=== PATIENT | female | born 1995 | race Caucasian/White ===

== ENCOUNTER 2017-12-18 14:14 | Emergency (ER) | payer MEDICAID ==
[2017-12-18] MEDS ORDERED: Sodium Chloride 0.9% 1,000 ML IV ONE (15:26)
[2017-12-18] MEDS ORDERED: Ondansetron 4 MG/2 ML SDV IV ONE (15:26)
[2017-12-18 15:49] LABS: ANION GAP 9.6; CHLORIDE,CL 103 mmol/L (101-111); SODIUM,NA 135 mmol/L (135-145)
[2017-12-18] MEDS ORDERED: Ketorolac 30 MG/ML SDV IVPUSH ONE (16:00)
--- NOTE | 2017-12-18 16:23 | EDM.PDOC ---
Scribed by Briana Morrissey 12/18/17 2480 for Wayne Cabello PA ED HPI GENERAL MEDICAL PROBLEM - General Chief Complaint: Abdominal Pain Stated Complaint: [place] SYMPTOMS Time Seen by Provider: 12/18/17 15:20 Source of Information: Reports: Patient, RN, RN Notes Reviewed History Limitations: Reports: No Limitations - History of Present Illness INITIAL COMMENTS - FREE TEXT/NARRATIVE: Patient states that she is not feeling well. She has had nausea, vomiting and diarrhea for 3 days. She has not been eating. She has intermittent dizziness. She has a small area on her left posterior thigh . Onset: Gradual Duration: Getting Worse Location: Reports: Generalized Quality: Reports: Ache Severity: Mild Improves with: Reports: None Worsens with: Reports: None Associated Symptoms: Reports: No Other Symptoms Abdomen Pain Score (Numeric/FACES): 7 - Related Data Allergies Allergy/AdvReac Type Severity Reaction Status Date / Time metoclopramide [From Reglan] Allergy Anxiety Verified 12/18/17 15:18 Home Meds: Home Meds FLUoxetine [PROzac] 10 mg PO BEDTIME 12/18/17 [History] Past Medical History - Past Health History Medical/Surgical History: Denies Medical/Surgical History Cardiovascular History: Reports: Other (See Below) (Von Willebrand) Social & Family History - Tobacco Use Smoking Status *Q: Never Smoker - Caffeine Use Caffeine Use: Reports: Coffee, Soda, Tea - Recreational Drug Use Recreational Drug Use: No ED ROS GENERAL - Review of Systems Review Of Systems: ROS reveals no pertinent complaints other than HPI. ED EXAM, GI/ABD - Physical Exam Exam: See Below Exam Limited By: No Limitations General Appearance: Alert, WD/WN, No Apparent Distress Eyes: Bilateral: Normal Appearance Ears: Normal External Exam, Normal Canal, Hearing Grossly Normal, Normal TMs Nose: Normal Inspection, Normal Mucosa, No Blood Throat/Mouth: Normal Inspection, Normal Lips, Normal Teeth, Normal Gums, Normal Oropharynx, Normal Voice, No Airway Compromise Head: Atraumatic, Normocephalic Neck: Normal Inspection, Supple, Non-Tender, Full Range of Motion Respiratory/Chest: No Respiratory Distress, Lungs Clear, Normal Breath Sounds, No Accessory Muscle Use, Chest Non-Tender Cardiovascular: Normal Peripheral Pulses, Regular Rate, Rhythm, No Edema, No Gallop, No JVD, No Murmur, No Rub GI/Abdominal Exam: Normal Bowel Sounds, Soft, Non-Tender, No Organomegaly, No Distention, No Abnormal Bruit, No Mass, Pelvis Stable (Female) Exam: Deferred Rectal (Female) Exam: Deferred Back Exam: Normal Inspection, Full Range of Motion, NT Extremities: Normal Inspection, Normal Range of Motion, Non-Tender, Normal Capillary Refill, No Pedal Edema Neurological: Alert, Oriented, CN II-XII Intact, Normal Cognition, Normal Gait, Normal Reflexes, No Motor/Sensory Deficits Psychiatric: Normal Affect, Normal Mood Skin Exam: Warm, Dry, Intact, Normal Color, No Rash Lymphatic: No Adenopathy Course - Vital Signs Last Recorded V/S: Last Vital Signs Temp 37.7 C 12/18/17 15:12 Pulse 75 12/18/17 15:12 Resp 16 12/18/17 15:12 BP 118/99 H 12/18/17 15:12 Pulse Ox 97 12/18/17 15:12 - Orders/Labs/Meds Orders: Active Orders 24 hr Category Date Time Status LYME, TOTAL AB TEST/REFLEX [REF] Stat Lab 12/18/17 15:24 Received [place] VIRUS IGM [REF] Stat Lab 12/18/17 15:16 Ordered Sodium Chloride 0.9% [Normal Saline] 1,000 ml Med 12/18/17 15:26 Active IV .BOLUS Medication Orders Sodium Chloride (Normal Saline) 1,000 mls @ 999 mls/hr IV .BOLUS ONE Stop: 12/18/17 16:26 Last Admin: 12/18/17 15:35 Dose: 999 mls/hr Labs: Laboratory Tests 12/18/17 12/18/17 Range/Units 15:24 15:24 WBC 5.6 (5.0-10.0) 10^3/uL RBC 4.98 (4.2-5.4) 10^6/uL Hgb 12.5 (12.0-16.0) g/dL Hct 38.3 (37.0-47.0) % MCV 76.9 L (80-100) fL MCH 25.1 L (27.0-34.0) pg MCHC 32.6 L (33.0-35.0) g/dL Plt Count 271 (150-450) 10^3/uL Neut % (Auto) 50.2 (42.2-75.2) % Lymph % (Auto) 40.4 (20.5-50.1) % [place] % (Auto) 7.3 (2-8) % Eos % (Auto) 1.4 (1.0-3.0) % Baso % (Auto) 0.7 (0.0-1.0) % Sodium 135 (135-145) mmol/L Potassium 3.6 (3.6-5.0) mmol/L Chloride 103 (101-111) mmol/L Carbon Dioxide 26.0 (21.0-31.0) mmol/L Anion Gap 9.6 BUN 10 (7-18) mg/dL Creatinine 0.9 (0.6-1.3) mg/dL Est Cr Clr Drug Dosing 86.73 mL/min Estimated GFR (MDRD) > 60 BUN/Creatinine Ratio 11.11 Glucose 86 (74-105) mg/dL Calcium 9.1 (8.4-10.2) mg/dl Total Bilirubin 0.4 (0.2-1.0) mg/dL AST 18 (10-42) IU/L ALT 13 (10-60) IU/L Alkaline Phosphatase 53 (42-121) IU/L Total Protein 7.3 (6.7-8.2) g/dl Albumin 4.4 (3.2-5.5) g/dl Globulin 2.9 Albumin/Globulin Ratio 1.52 Meds: Medications Generic Name Dose Route Start Last Admin Trade Name Freq PRN Reason Stop Dose Admin Sodium Chloride 1,000 mls @ 999 mls/hr 12/18/17 15:26 12/18/17 15:35 Normal Saline IV 12/18/17 16:26 999 mls/hr .BOLUS ONE Administration Discontinued Medications Generic Name Dose Route Start Last Admin Trade Name Freq PRN Reason Stop Dose Admin Ketorolac Tromethamine 30 mg 12/18/17 16:00 12/18/17 16:09 Toradol IVPUSH 12/18/17 16:01 30 mg ONETIME ONE Administration Ondansetron HCl 4 mg 12/18/17 15:26 12/18/17 15:37 Zofran IV 12/18/17 15:27 4 mg ONETIME ONE Administration Departure - Departure Time of Disposition: 16:23 Disposition: Home, Self-Care 01 Condition: Fair Clinical Impression: Gastroenteritis, Dehydration Abdominal pain Qualifiers: Abdominal location: generalized Qualified Code(s): R10.84 - Generalized abdominal pain - Discharge Information *PRESCRIPTION DRUG MONITORING PROGRAM REVIEWED*: Not Applicable *COPY OF PRESCRIPTION DRUG MONITORING REPORT IN PATIENT SOPHY: Not Applicable Instructions: Viral Gastroenteritis, Adult, [id number], Nausea and Vomiting, Adult, [id number] Forms: ED Department Discharge Care Plan Goals: The patient was advised of the examination and lab results during the visit. The patient was given IV Zofran, IV Toradol and IV fluids during the visit. The patient was discharged with a script for Zofran ODT (4 mg) #16 to take 1 by mouth every 6 hours as needed. The patient was encouraged to stick to a BRAT diet (bananas, rice, applesauce and toast) over the next 48 hours with small frequent sips of fluid. There were several lab tests that were sent out to for further analysis. The patient will be contacted if these tests come back positive. If the patient has any additional symptoms or concerns, the patient should follow-up with her primary care facility or return to the emergency department. - My Orders Last 24 Hours: My Active Orders 12/18/17 15:16 [place] VIRUS IGM [REF] Stat 12/18/17 15:24 LYME, TOTAL AB TEST/REFLEX [REF] Stat 12/18/17 15:26 Sodium Chloride 0.9% [Normal Saline] 1,000 ml IV .BOLUS - Assessment/Plan Last 24 Hours: My Active Orders 12/18/17 15:16 [place] VIRUS IGM [REF] Stat 12/18/17 15:24 LYME, TOTAL AB TEST/REFLEX [REF] Stat 12/18/17 15:26 Sodium Chloride 0.9% [Normal Saline] 1,000 ml IV .BOLUS I have read and agree with the documentation that has been completed regarding this visit. By signing this record, I attest that the documentation was completed in my physical presence and is an accurate record of the encounter.
== END 2017-12-18 16:50 | disposition home or self-care (01) ==
LOC: DL.ED 14:14
DX: K52.9 Noninfective gastroenteritis and colitis, unspecified (principal); E86.0 Dehydration; Z88.8 Allergy status to other drugs, medicaments and biological substances
CPT/HCPCS: 36415; 80053; 85025; 86618; 86788; 96361; 96374; 96375; 99284; J1885; J2405; J7030

== ENCOUNTER 2018-02-07 18:51 | Emergency (ER) | payer MEDICAID ==
--- NOTE | 2018-02-07 19:26 | EDM.PDOC ---
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 The patient reports she started to notice spotting this morning at about 0400. Throughout the day, the patient has started to notice increased lower abdominal cramping and increased bleeding. The patient reports that she has a history of von Willebrand disease and is concerned about excessive bleeding due to her disease. Onset: Today Onset Date: 02/07/18 Onset Time: 04:00 Duration: Constant, Getting Worse Location: Reports: Abdomen Quality: Reports: Other Severity: Moderate Improves with: Reports: None Worsens with: Reports: None Associated Symptoms: Reports: No Other Symptoms Lower Abdominal Pain Score (Numeric/FACES): 7 Lower Back Pain Score (Numeric/FACES): 8 - Related Data Allergies Allergy/AdvReac Type Severity Reaction Status Date / Time metoclopramide [From Reglan] Allergy Anxiety Verified 02/07/18 19:10 Home Meds: Home Meds FLUoxetine [PROzac] 10 mg PO BEDTIME 12/18/17 [History] Past Medical History - Past Health History Medical/Surgical History: Denies Medical/Surgical History Cardiovascular History: Reports: Other (See Below) (Von Willebrand) Hematologic History: Reports: Other (See Below) Other Hematologic History: Von Willebrand Dx Social & Family History - Tobacco Use Smoking Status *Q: Never Smoker - Caffeine Use Caffeine Use: Reports: None - Recreational Drug Use Recreational Drug Use: No ED ROS GENERAL - Review of Systems Review Of Systems: ROS reveals no pertinent complaints other than HPI. ED EXAM - Physical Exam Exam: See Below Exam Limited By: No Limitations General Appearance: Alert, WD/WN, Mild Distress Eye Exam: Bilateral Eye: EOMI, Normal Inspection, PERRL Ears: Normal External Exam, Normal Canal, Hearing Grossly Normal, Normal TMs Nose: Normal Inspection, Normal Mucosa, No Blood Throat/Mouth: Normal Inspection, Normal Lips, Normal Teeth, Normal Gums, Normal Oropharynx, Normal Voice, No Airway Compromise Head: Atraumatic, Normocephalic Neck: Normal Inspection, Supple, Non-Tender, Full Range of Motion Respiratory/Chest: No Respiratory Distress, Lungs Clear, Normal Breath Sounds, No Accessory Muscle Use, Chest Non-Tender Cardiovascular: Normal Peripheral Pulses, Regular Rate, Rhythm, No Edema, No Gallop, No JVD, No Murmur, No Rub GI/Abdominal Exam: Tender (lower abdominal cramping and vaginal bleeding) Rectal Exam: Deferred Heart Tones: Not [place] Movement: Not Appreciated Back Exam: Normal Inspection, Full Range of Motion, NT Extremities: Normal Inspection, Normal Range of Motion, Non-Tender, Normal Capillary Refill, No Pedal Edema Neurological: Alert, Oriented, CN II-XII Intact, Normal Cognition, Normal Gait, Normal Reflexes, No Motor/Sensory Deficits Psychiatric: Normal Affect, Normal Mood Skin Exam: Warm, Dry, Intact, Normal Color, No Rash Lymphatic: No Adenopathy Course - Vital Signs Last Recorded V/S: Last Vital Signs Temp 36.5 C 02/07/18 19:02 Pulse 101 H 02/07/18 19:02 Resp 18 02/07/18 19:02 BP 122/71 02/07/18 19:02 Pulse Ox 100 02/07/18 19:02 - Orders/Labs/Meds Orders: Active Orders 24 hr Category Date Time Status OB Ltd 1 or More Fetus [US] Urgent Exams 02/07/18 19:55 Ordered OB Transvaginal [US] Urgent Exams 02/07/18 19:55 Ordered UA W/MICROSCOPIC [URIN] Stat Lab 02/07/18 18:58 Ordered Labs: Laboratory Tests 02/07/18 02/07/18 02/07/18 Range/Units 19:10 19:10 19:10 WBC 7.0 (5.0-10.0) 10^3/uL RBC 4.57 (4.2-5.4) 10^6/uL Hgb 11.8 L (12.0-16.0) g/dL Hct 35.8 L (37.0-47.0) % MCV 78.3 L (80-100) fL MCH 25.8 L (27.0-34.0) pg MCHC 33.0 (33.0-35.0) g/dL Plt Count 188 D (150-450) 10^3/uL Neut % (Auto) 66.0 (42.2-75.2) % Lymph % (Auto) 28.1 (20.5-50.1) % [place] % (Auto) 4.6 (2-8) % Eos % (Auto) 0.9 L (1.0-3.0) % Baso % (Auto) 0.4 (0.0-1.0) % PT (9.0-12.0) SEC INR (0.9-1.2) Sodium 136 (135-145) mmol/L Potassium 3.5 L (3.6-5.0) mmol/L Chloride 102 (101-111) mmol/L Carbon Dioxide 27.0 (21.0-31.0) mmol/L Anion Gap 10.5 BUN 10 (7-18) mg/dL Creatinine 0.5 L (0.6-1.3) mg/dL Est Cr Clr Drug Dosing 156.12 mL/min Estimated GFR (MDRD) > 60 BUN/Creatinine Ratio 20.00 Glucose 108 H (74-105) mg/dL Calcium 9.0 (8.4-10.2) mg/dl Total Bilirubin 0.5 (0.2-1.0) mg/dL AST 16 (10-42) IU/L ALT 10 (10-60) IU/L Alkaline Phosphatase 41 L (42-121) IU/L Total Protein 6.9 (6.7-8.2) g/dl Albumin 4.1 (3.2-5.5) g/dl Globulin 2.8 Albumin/Globulin Ratio 1.46 HCG, Quant > 1358 H (0-25) mIU/ml Beta HCG, Quant 49425 mIU/ml Urine Color (YELLOW) Urine Appearance (CLEAR) Urine pH (5.0-9.0) Ur Specific [place] (1.005-1.030) Urine Protein (NEGATIVE) Urine Glucose (UA) (NEGATIVE) Urine Ketones (NEGATIVE) Urine Occult Blood (NEGATIVE) Urine Nitrite (NEGATIVE) Urine Bilirubin (NEGATIVE) Urine Urobilinogen (0.2-1.0) mg/dL Ur Leukocyte Esterase (NEGATIVE) Urine RBC /HPF Urine WBC (0-5/HPF) /HPF Ur Epithelial Cells /HPF Urine Bacteria (0-FEW/HPF) /HPF Urine Mucus /LPF 02/07/18 02/07/18 Range/Units 19:10 19:43 WBC (5.0-10.0) 10^3/uL RBC (4.2-5.4) 10^6/uL Hgb (12.0-16.0) g/dL Hct (37.0-47.0) % MCV (80-100) fL MCH (27.0-34.0) pg MCHC (33.0-35.0) g/dL Plt Count (150-450) 10^3/uL Neut % (Auto) (42.2-75.2) % Lymph % (Auto) (20.5-50.1) % [place] % (Auto) (2-8) % Eos % (Auto) (1.0-3.0) % Baso % (Auto) (0.0-1.0) % PT 10.1 (9.0-12.0) SEC INR 1.0 (0.9-1.2) Sodium (135-145) mmol/L Potassium (3.6-5.0) mmol/L Chloride (101-111) mmol/L Carbon Dioxide (21.0-31.0) mmol/L Anion Gap BUN (7-18) mg/dL Creatinine (0.6-1.3) mg/dL Est Cr Clr Drug Dosing mL/min Estimated GFR (MDRD) BUN/Creatinine Ratio Glucose (74-105) mg/dL Calcium (8.4-10.2) mg/dl Total Bilirubin (0.2-1.0) mg/dL AST (10-42) IU/L ALT (10-60) IU/L Alkaline Phosphatase (42-121) IU/L Total Protein (6.7-8.2) g/dl Albumin (3.2-5.5) g/dl Globulin Albumin/Globulin Ratio HCG, Quant (0-25) mIU/ml Beta HCG, Quant mIU/ml Urine Color Yellow (YELLOW) Urine Appearance Cloudy (CLEAR) Urine pH 6.0 (5.0-9.0) Ur Specific [place] >= 1.030 (1.005-1.030) Urine Protein Trace H (NEGATIVE) Urine Glucose (UA) Negative (NEGATIVE) Urine Ketones Negative (NEGATIVE) Urine Occult Blood Moderate H (NEGATIVE) Urine Nitrite Negative (NEGATIVE) Urine Bilirubin Negative (NEGATIVE) Urine Urobilinogen 1.0 (0.2-1.0) mg/dL Ur Leukocyte Esterase Negative (NEGATIVE) Urine RBC 75-100 H /HPF Urine WBC 5-10 H (0-5/HPF) /HPF Ur Epithelial Cells Few /HPF Urine Bacteria Few (0-FEW/HPF) /HPF Urine Mucus Many H /LPF Departure - Departure Time of Disposition: 22:00 Disposition: Home, Self-Care 01 Condition: Fair Clinical Impression: Threatened miscarriage in early - Discharge Information *PRESCRIPTION DRUG MONITORING PROGRAM REVIEWED*: Not Applicable *COPY OF PRESCRIPTION DRUG MONITORING REPORT IN PATIENT SOPHY: Not Applicable Instructions: Vaginal Bleeding During , First Trimester, [id number] , Threatened Miscarriage Forms: ED Department Discharge Care Plan Goals: The patient was advised of the examination, lab and ultrasound results during the visit. The patient was advised of the consult with our big machine consultant logging supervisor (Dr. Hawk). The patient was encouraged to go home and rest and avoid excessive activity. The patient may take Tylenol or ibuprofen as needed for pain. The patient should contact her logging supervisor in the morning for continued evaluation and further management. If the patient has any additional symptoms or further concerns, the patient should visit her primary care facility or return to the emergency department. - My Orders Last 24 Hours: My Active Orders 02/07/18 18:58 UA W/MICROSCOPIC [URIN] Stat 02/07/18 19:55 OB Ltd 1 or More Fetus [US] Urgent OB Transvaginal [US] Urgent - Assessment/Plan Last 24 Hours: My Active Orders 02/07/18 18:58 UA W/MICROSCOPIC [URIN] Stat 02/07/18 19:55 OB Ltd 1 or More Fetus [US] Urgent OB Transvaginal [US] Urgent
[2018-02-07 19:44] LABS: ANION GAP 10.5; CHLORIDE,CL 102 mmol/L (101-111); SODIUM,NA 136 mmol/L (135-145)
== END 2018-02-07 22:13 | disposition home or self-care (01) ==
LOC: DL.ED 18:51
DX: O20.0 Threatened abortion (principal); Z88.8 Allergy status to other drugs, medicaments and biological substances; Z3A.01 Less than 8 weeks gestation of pregnancy
CPT/HCPCS: 36415; 76815; 76817; 80053; 81001; 84702; 85025; 85610; 99284

== ENCOUNTER 2018-02-08 09:55 | Emergency (ER) | payer MEDICAID ==
--- NOTE | 2018-02-08 10:05 | EDM.PDOC ---
ED HPI GENERAL MEDICAL PROBLEM - General Chief Complaint: WAREHOUSE SHIPPING ASSOCIATE Problem Stated Complaint: [id number] 8 WEEK PREG BLEEDING Time Seen by Provider: 02/08/18 10:05 Source of Information: Reports: Patient, Old Records, RN, RN Notes Reviewed History Limitations: Reports: No Limitations - History of Present Illness INITIAL COMMENTS - FREE TEXT/NARRATIVE: G4, P3, 0-0, L3 all by vag. delivery, currently at 8 weeks 1 day by US on presents to ER from home by POV with c/o heavy vaginal bleeding and Hx of von Willebrand disease. Pt was seen here last evening for vaginal bleeding. She return today due to increased pain and she passed a clot that was about the size of an egg. Pt reports soaking a large pad every hour for at least 3 hours. She admits to mild lightheadedness, and feels very anxious. Her youngest child is 4 months old, and she was not expecting to become at this time. Onset Date: 02/07/18 Duration: Constant Location: Reports: Pelvis Quality: Reports: Ache, Other (cramping) Severity: Moderate Improves with: Reports: None Worsens with: Reports: None Associated Symptoms: Reports: No Other Symptoms Lower Abdominal Pain Score (Numeric/FACES): 9 - Related Data Allergies Allergy/AdvReac Type Severity Reaction Status Date / Time metoclopramide [From Reglan] Allergy Anxiety Verified 02/08/18 10:01 Home Meds: Home Meds FLUoxetine [PROzac] 10 mg PO BEDTIME 12/18/17 [History] Past Medical History - Past Health History Medical/Surgical History: Denies Medical/Surgical History Cardiovascular History: Reports: Other (See Below) (Von Willebrand) WAREHOUSE SHIPPING ASSOCIATE History: Reports: : 4 Para: 3 (all by vag. delivery) LMP (Approximate): Hematologic History: Reports: Other (See Below) Other Hematologic History: Von Willebrand Dx Social & Family History - Family History Family Medical History: Noncontributory - Caffeine Use Caffeine Use: Reports: None - Alcohol Use Alcohol Use History: No - Recreational Drug Use Recreational Drug Use: No - Sexual History Sexual History: Reports: Sexually Active - Living Situation & Occupation Living situation: Reports: , with Family ED ROS GENERAL - Review of Systems Review Of Systems: ROS reveals no pertinent complaints other than HPI. ED EXAM - Physical Exam Exam: See Below Exam Limited By: No Limitations General Appearance: Alert, WD/WN, No Apparent Distress, Anxious Nose: Normal Inspection, No Blood Throat/Mouth: Normal Inspection, Normal Lips, Normal Teeth, Normal Gums, Normal Oropharynx, Normal Voice, No Airway Compromise Head: Atraumatic, Normocephalic Neck: Normal Inspection, Supple, Non-Tender, Full Range of Motion Respiratory/Chest: No Respiratory Distress, Lungs Clear, Normal Breath Sounds, No Accessory Muscle Use, Chest Non-Tender Cardiovascular: Regular Rate, Rhythm, No Edema, Tachycardia GI/Abdominal Exam: Normal Bowel Sounds, Soft, No Distention, Tender (mild suprapubic tenderness). No: Guarding, Rigid, Rebound Rectal Exam: Deferred (Female) Exam: Vaginal Bleeding (moderately heavy). No: Normal Speculum Exam (deferred) Back Exam: Normal Inspection Extremities: Normal Inspection Neurological: Alert, Oriented, CN II-XII Intact, Normal Cognition, Normal Gait, No Motor/Sensory Deficits Psychiatric: Normal Affect, Anxious Skin Exam: Warm, Dry, Intact, Normal Color, No Rash Course - Vital Signs Last Recorded V/S: Last Vital Signs Temp 36.4 C 02/08/18 10:02 Pulse 104 H 02/08/18 10:02 Resp 15 02/08/18 10:02 BP 120/75 02/08/18 10:02 Pulse Ox 100 02/08/18 10:02 - Orders/Labs/Meds Orders: Active Orders 24 hr Category Date Time Status OB Transvaginal [US] Stat Exams 02/08/18 10:19 Taken Labs: Laboratory Tests 02/08/18 02/08/18 02/08/18 Range/Units 10:18 10:18 10:18 WBC 6.9 (5.0-10.0) 10^3/uL RBC 4.69 (4.2-5.4) 10^6/uL Hgb 12.0 (12.0-16.0) g/dL Hct 36.5 L (37.0-47.0) % MCV 77.8 L (80-100) fL MCH 25.6 L (27.0-34.0) pg MCHC 32.9 L (33.0-35.0) g/dL Plt Count 200 (150-450) 10^3/uL Neut % (Auto) 72.9 (42.2-75.2) % Lymph % (Auto) 20.0 L (20.5-50.1) % [place] % (Auto) 6.1 (2-8) % Eos % (Auto) 0.7 L (1.0-3.0) % Baso % (Auto) 0.3 (0.0-1.0) % APTT 30.1 (22.0-34.0) SEC HCG, Quant (0-25) mIU/ml Beta HCG, Quant mIU/ml Blood Type (Referred) Cancelled Blood Type O NEGATIVE Rhogam Indicated Cancelled Blood Bank Comment Cancelled 02/08/18 Range/Units 10:18 WBC (5.0-10.0) 10^3/uL RBC (4.2-5.4) 10^6/uL Hgb (12.0-16.0) g/dL Hct (37.0-47.0) % MCV (80-100) fL MCH (27.0-34.0) pg MCHC (33.0-35.0) g/dL Plt Count (150-450) 10^3/uL Neut % (Auto) (42.2-75.2) % Lymph % (Auto) (20.5-50.1) % [place] % (Auto) (2-8) % Eos % (Auto) (1.0-3.0) % Baso % (Auto) (0.0-1.0) % APTT (22.0-34.0) SEC HCG, Quant > 1358 H (0-25) mIU/ml Beta HCG, Quant 34299 mIU/ml Blood Type (Referred) Blood Type Rhogam Indicated Blood Bank Comment Meds: Medications Discontinued Medications Generic Name Dose Route Start Last Admin Trade Name Freq PRN Reason Stop Dose Admin Hydromorphone HCl 1 mg 02/08/18 11:21 02/08/18 11:47 Dilaudid IVPUSH 02/08/18 11:22 1 mg ONETIME ONE Administration Desmopressin Acetate 22.4529 105.6132 mls @ 189.914 mls/hr 02/08/18 10:45 09/22 11:10 mcg/ Sodium Chloride IV 02/08/18 11:18 189.914 mls/hr ONETIME ONE Administration Sodium Chloride 1,000 mls @ 999 mls/hr 02/08/18 11:21 02/08/18 11:43 Normal Saline IV 02/08/18 12:21 999 mls/hr .BOLUS ONE Administration Ondansetron HCl 4 mg 02/08/18 11:21 02/08/18 11:44 Zofran IV 02/08/18 11:22 4 mg ONETIME ONE Administration - Radiology Interpretation Free Text/Narrative:: Ob US: uterus now empty per tech report. Rad report: Missed Ab, no gest. sac, or identifiable pole, no identifiable retained products of conception. - Re-Assessments/Exams Free Text/Narrative Re-Assessment/Exam: 02/08/18 12:[address] Perkins via [facility] [facility] [employer], he agrees with the eval. and treatment in ER thus far, and advises pt may be d/c'd to home with Rx for nasal DDAVP, and to have pt call the clinic tomorrow to schedule follow up. Departure - Departure Time of Disposition: 12:42 Disposition: Home, Self-Care 01 Condition: Good Clinical Impression: Complete , History of von Willebrand's disease - Discharge Information Instructions: Miscarriage Forms: ED Department Discharge Additional Instructions: Rx: Intranasal DDAVP Rx: Hydrocodone APAP 5mg/325mg *Do not drive or work while under the influence of this medication. Call your [facility] today or tomorrow to arrange a follow up visit. Return to ER if bleeding becomes heavy, if pain is uncontrolled, or if you develop a fever. - My Orders Last 24 Hours: My Active Orders 02/08/18 10:19 OB Transvaginal [US] Stat - Assessment/Plan Last 24 Hours: My Active Orders 02/08/18 10:19 OB Transvaginal [US] Stat
[2018-02-08] MEDS ORDERED: WATER IV ONE ×2 (10:23)
[2018-02-08] MEDS ORDERED: DESMOPRESSIN IV ONE ×3 (10:23→10:45)
[2018-02-08] MEDS ORDERED: DEXTROSE 5% IV ONE ×2 (10:23)
[2018-02-08] MEDS ORDERED: SODIUM CHLORIDE 0.9% IV ONE (10:45)
--- NOTE | 2018-02-08 11:07 | US ---
Clinical history: 22-year-old high risk (von Willebrand's syndrome) distressed "gravid" female with v aginal bleeding whose LMP was 05 December 2017 (8+ weeks). Interpretation: Abnormal. Anteverted uterus without gestational sac or identifiable pole (trace of fluid within the irreg ular but empty endometrial canal). No identifiable retained products of conception (echogenic blood products in the lower uterine canal) No myometrial mass lesion or adnexal mass lesion. No free fluid in the cul-de-sac. Small ovaries bilaterally. CONCLUSION: Missed AB.
[2018-02-08] MEDS ORDERED: Ondansetron 4 MG/2 ML SDV IV ONE (11:21)
[2018-02-08] MEDS ORDERED: HYDROmorphone 1 MG/ML Syringe IVPUSH ONE (11:21)
[2018-02-08] MEDS ORDERED: Sodium Chloride 0.9% 1,000 ML IV ONE (11:21)
== END 2018-02-08 13:15 | disposition home or self-care (01) ==
LOC: DL.ED 09:55
DX: O03.9 Complete or unspecified spontaneous abortion without complication (principal); Z88.8 Allergy status to other drugs, medicaments and biological substances; Z79.899 Other long term (current) drug therapy
CPT/HCPCS: 36415; 76815; 76817; 84702; 85025; 85730; 86900; 86901; 96361; 96365; 96372; 96375; 99284; J1170; J2405; J2597; J2790; J7030; J7050